=== PATIENT | male | born 1985 ===

== ENCOUNTER 2017-05-08 21:07 | Emergency (ER) | payer SELFPAY ==
[2017-05-08] MEDS ORDERED: cefTRIAXone 1 GM in Premix Bag 1 BAG IV ONE (21:39)
[2017-05-08] MEDS ORDERED: Sodium Chloride 0.9% 10 ML Syringe FLUSH PRN (21:39)
[2017-05-08] MEDS ORDERED: Ketorolac 30 MG/ML SDV IVPUSH ONE (21:39)
[2017-05-08] MEDS ORDERED: Sodium Chloride 0.9% 2.5 ML Syringe FLUSH PRN (21:39)
[2017-05-08] MEDS ORDERED: Sodium Chloride 0.9% 1,000 ML IV ONE (21:39)
--- NOTE | 2017-05-08 21:42 | EDM.PDOC ---
ED HPI GENERAL MEDICAL PROBLEM - General Chief Complaint: ENT Problem Stated Complaint: SORE THROAT AND BODY ACHES Time Seen by Provider: 05/08/17 21:34 - History of Present Illness INITIAL COMMENTS - FREE TEXT/NARRATIVE: HISTORY AND PHYSICAL: History of present illness: The patient is a 31-year-old male with no stated pre-existing medical problems who presents with 2 day history of generalized body aches, fever subjectively chills and a sore throat. He has not had abdominal pain vomiting or diarrhea as been trying to hydrate but does not feel like he is keeping up. He has no chest pain or shortness of breath and has been making some urine but less than usual. Patient is been using [id number] Aleve for pain and fevers. He says he is able to talk and swallow but there is discomfort and his significant other says she looked at his throat looked very red. He also complains of frontal headache but no neck pain. Review of systems: As per history of present illness and below otherwise all systems reviewed and negative. Past medical history: As per history of present illness and as reviewed below otherwise noncontributory. Surgical history: As per history of present illness and as reviewed below otherwise noncontributory. Social history: No reported history of drug or alcohol abuse. Family history: As per history of present illness and as reviewed below otherwise noncontributory. Physical exam: Gen.: Well-developed well-nourished thin man who is nontoxic and speaking softly but without muffled voice or breathlessness. Vital signs have been reviewed by me. HEENT: Atraumatic, normocephalic, pupils reactive, negative for conjunctival pallor or scleral icterus, mucous membranes moist, throat with enlarged reddened tonsils bilaterally and the left tonsil appears to have some exudates on it but uvula is midline, there is anterior cervical adenopathy without posterior adenopathy and there is no nuchal rigidity. There is no discrete sinus tenderness, neck supple, nontender, trachea midline. Lungs: Clear to auscultation, breath sounds equal bilaterally, chest nontender. Heart: S1S2, regular rhythm and tachycardic rate of my evaluation Abdomen: Soft, nondistended, nontender. Negative for masses or hepatosplenomegaly. NABS Pelvis: Stable nontender. Genitourinary: Deferred. Rectal: Deferred. Extremities: Atraumatic, negative for cords or calf pain. Neurovascular unremarkable. Neuro: Awake, alert, oriented. Cranial nerves II through XII unremarkable. Cerebellum unremarkable. Motor and sensory unremarkable throughout. Exam nonfocal. Diagnostics: CBC mono spot Therapeutics: IV fluids Toradol Rocephin Impression: Exudative tonsillitis with mild dehydration Definitive disposition and diagnosis as appropriate pending reevaluation and review of above. throat Pain Score (Numeric/FACES): 10 body Pain Score (Numeric/FACES): 10 - Related Data Allergies Allergy/AdvReac Type Severity Reaction Status Date / Time No Known Allergies Allergy Verified 05/08/17 21:10 Home Meds: Home Meds . [No Known Home Meds] 05/08/17 [History] Past Medical History - Past Health History Medical/Surgical History: Denies Medical/Surgical History - Past Surgical History GI Surgical History: Reports: Hernia, Inguinal Social & Family History - Family History Family Medical History: Noncontributory - Tobacco Use Smoking Status *Q: Current Every Day Smoker Years of Tobacco use: 15 Packs/Tins Daily: 1 - Recreational Drug Use Recreational Drug Use: No ED ROS GENERAL - Review of Systems Review Of Systems: ROS reveals no pertinent complaints other than HPI. ED EXAM, GENERAL - Physical Exam Exam: See Below (See dictation) Course - Vital Signs Last Recorded V/S: Last Vital Signs Temp 37.1 C 05/08/17 21:07 Pulse 122 H 05/08/17 21:07 Resp 20 05/08/17 21:07 BP 107/66 05/08/17 21:07 Pulse Ox 100 05/08/17 21:07 - Orders/Labs/Meds Orders: Active Orders 24 hr Category Date Time Status Sodium Chloride 0.9% [Saline Flush] Med 05/08/17 21:39 Active 10 ml FLUSH ASDIRECTED PRN Sodium Chloride 0.9% [Saline Flush] Med 05/08/17 21:39 Active 2.5 ml FLUSH ASDIRECTED PRN Saline Lock Insert [OM.PC] Stat Oth 05/08/17 21:39 Ordered Medication Orders Sodium Chloride (Saline Flush) 10 ml FLUSH ASDIRECTED PRN PRN Reason: Keep Vein Open Sodium Chloride (Saline Flush) 2.5 ml FLUSH ASDIRECTED PRN PRN Reason: Keep Vein Open Labs: Laboratory Tests 05/08/17 05/08/17 Range/Units 21:55 21:55 WBC 17.03 H (4.0-11.0) K/uL RBC 5.48 (4.50-5.90) M/uL Hgb 16.9 (13.0-17.0) g/dL Hct 47.9 (38.0-50.0) % MCV 87.4 (80.0-98.0) fL MCH 30.8 (27.0-32.0) pg MCHC 35.3 (31.0-37.0) g/dL RDW Std Deviation 41.2 (28.0-62.0) fl RDW Coeff of Gloria 13 (11.0-15.0) % Plt Count 190 (150-400) K/uL MPV 10.00 (7.40-12.00) fL Neut % (Auto) 81.6 H (48.0-80.0) % Lymph % (Auto) 5.6 L (16.0-40.0) % White % (Auto) 12.6 (0.0-15.0) % Eos % (Auto) 0.0 (0.0-7.0) % Baso % (Auto) 0.2 (0.0-1.5) % Neut # (Auto) 13.9 H (1.4-5.7) K/uL Lymph # (Auto) 1.0 (0.6-2.4) K/uL White # (Auto) 2.2 H (0.0-0.8) K/uL Eos # (Auto) 0.0 (0.0-0.7) K/uL Baso # (Auto) 0.0 (0.0-0.1) K/uL Nucleated RBC % 0.0 /100WBC Nucleated RBCs # 0 K/uL Monoscreen NEGATIVE (NEG) Meds: Medications Generic Name Dose Route Start Last Admin Trade Name Freq PRN Reason Stop Dose Admin Sodium Chloride 10 ml 05/08/17 21:39 Saline Flush FLUSH ASDIRECTED PRN Keep Vein Open Sodium Chloride 2.5 ml 05/08/17 21:39 Saline Flush FLUSH ASDIRECTED PRN Keep Vein Open Discontinued Medications Generic Name Dose Route Start Last Admin Trade Name Freq PRN Reason Stop Dose Admin Ceftriaxone Sodium/Dextrose 1 50 mls @ 100 mls/hr 05/08/17 21:39 05/08/17 21: 56 gm/ Premix IV 05/08/17 22:08 100 mls/hr ONETIME ONE Administration Sodium Chloride 1,000 mls @ 999 mls/hr 05/08/17 21:39 05/08/17 21:56 Normal Saline IV 05/08/17 22:39 999 mls/hr STAT ONE Administration Ketorolac Tromethamine 30 mg 05/08/17 21:39 05/08/17 21:55 Toradol IVPUSH 05/08/17 21:40 30 mg ONETIME ONE Administration Departure - Departure Time of Disposition: 22:48 Disposition: Home, Self-Care 01 Condition: Good Clinical Impression: Exudative tonsillitis, Dehydration, mild - Discharge Information Referrals: PCP,None [Primary Care Provider] - Forms: ED Department Discharge Additional Instructions: The following information is given to patients seen in the emergency department who are being discharged to home. This information is to outline your options for follow-up care. We provide all patients seen in our emergency department with a follow-up referral. The need for follow-up, as well as the timing and circumstances, are variable depending upon the specifics of your emergency department visit. If you don't have a primary care physician on staff, we will provide you with a referral. We always advise you to contact your personal physician following an emergency department visit to inform them of the circumstance of the visit and for follow-up with them and/or the need for any referrals to a consulting specialist. The emergency department will also refer you to a specialist when appropriate. This referral assures that you have the opportunity for followup care with a specialist. All of these measure are taken in an effort to provide you with optimal care, which includes your followup. Under all circumstances we always encourage you to contact your private physician who remains a resource for coordinating your care. When calling for followup care, please make the office aware that this follow-up is from your recent emergency room visit. If for any reason you are refused follow-up, please contact the [facility] emergency department at and ask to speak to the emergency department charge nurse. [facility] Primary care- Internal Medicine and [facility] [address] [place] [address] Please contact the clinic for an appointment for follow-up for reevaluation further care and return to ER as needed and as discussed. Push hydration use [id number] Tylenol or ibuprofen for fever and pain and take antibiotics until they're finished. Rest as much as possible You have been given a prescription via [facility] for antibiotics, clindamycin, that you should take as prescribed - My Orders Last 24 Hours: My Active Orders 05/08/17 21:39 Sodium Chloride 0.9% [Saline Flush] 10 ml FLUSH ASDIRECTED PRN Sodium Chloride 0.9% [Saline Flush] 2.5 ml FLUSH ASDIRECTED PRN Saline Lock Insert [OM.PC] Stat - Assessment/Plan Last 24 Hours: My Active Orders 05/08/17 21:39 Sodium Chloride 0.9% [Saline Flush] 10 ml FLUSH ASDIRECTED PRN Sodium Chloride 0.9% [Saline Flush] 2.5 ml FLUSH ASDIRECTED PRN Saline Lock Insert [OM.PC] Stat
== END 2017-05-08 23:23 | disposition home or self-care (01) ==
LOC: MW.ED 21:07
DX: J03.90 Acute tonsillitis, unspecified (principal); E86.0 Dehydration; F17.210 Nicotine dependence, cigarettes, uncomplicated
CPT/HCPCS: 36415; 85025; 86308; 96361; 96365; 96375; 99283; J0696; J1885; J7040

== ENCOUNTER 2017-08-07 23:27 | Emergency (ER) | payer SELFPAY ==
[2017-08-07] MEDS ORDERED: Sodium Chloride 0.9% 2.5 ML Syringe FLUSH PRN ×2 (23:30)
[2017-08-07] MEDS ORDERED: Aspirin 81 MG Tab.Chew PO ONE (23:30)
[2017-08-07] MEDS ORDERED: Sodium Chloride 0.9% 1,000 ML IV ONE (23:30)
[2017-08-07] MEDS ORDERED: Sodium Chloride 0.9% 10 ML Syringe FLUSH PRN (23:30)
--- NOTE | 2017-08-07 23:30 | EDM.PDOC ---
ED HPI GENERAL MEDICAL PROBLEM - General Stated Complaint: OVERDOSE Time Seen by Provider: 08/07/17 23:30 Source of Information: Reports: Patient, EMS History Limitations: Reports: No Limitations - History of Present Illness INITIAL COMMENTS - FREE TEXT/NARRATIVE: HISTORY AND PHYSICAL: History of present illness: [31-year-old male presenting to emergency department via EMS for suspected overdose. As per EMS, the patient had been found unresponsive and bystanders had given him CPR. When EMS arrived he did have a strong pulse. They did give him 4 mg of Narcan which Patient responded to. In route they did note mild ST elevation. On examination the patient is alert and oriented 3. He does have some shortness of breath but does not complain of anything else. He denies any trauma. States that he was drinking alcohol but denies any other drug use. Patient states that he is from [place]. Initial exam is benign other than mild pinpointing of pupils. As above GCS 15 EKG: NSR with early repolarization. 1215: CXR and Head CT unremarkable. CBC unremarkable 1240: Patient A&Ox 3. Talked with patient without police present and he admits to taking heroin IV. He states that he has only done it a few times so does not have a tolerance. Unsure how much he took because he had been drinking alcohol. He has never overdosed before. 1310: Troponin negative, amylase, lipase unremarkable. CMP unremarkable other than mild elevation of AST of 48. Ethanol: 3.0. ] Review of systems: As per history of present illness and below otherwise all systems reviewed and negative. Past medical history: As per history of present illness and as reviewed below otherwise noncontributory. Surgical history: As per history of present illness and as reviewed below otherwise noncontributory. Social history: No reported history of drug or alcohol abuse. Family history: As per history of present illness and as reviewed below otherwise noncontributory. Physical exam: HEENT: Atraumatic, normocephalic, pupils reactive, pinpoint, negative for conjunctival pallor or scleral icterus, mucous membranes moist, throat clear, neck supple, nontender, trachea midline. Lungs: Clear to auscultation, breath sounds equal bilaterally, chest nontender. Heart: S1S2, regular, negative for clicks, rubs, or JVD. Abdomen: Soft, nondistended, nontender. Negative for masses or hepatosplenomegaly. Negative for costovertebral tenderness. Pelvis: Stable nontender. Genitourinary: Deferred. Rectal: Deferred. Extremities: Atraumatic, negative for cords or calf pain. Neurovascular unremarkable. Neuro: Awake, alert, oriented. Cranial nerves II through XII unremarkable. Cerebellum unremarkable. Motor and sensory unremarkable throughout. Exam nonfocal. Diagnostics: [CBC, CMP, troponin, amylase, lipase, EKG, chest x-ray, CT head, UA, urine tox] Therapeutics: [] Impression: [Acute overdose, heroin] Plan: [Patient was observed for 2 hours and remained alert and oriented 3. His ethanol, CBC, CMP, troponin, amylase, lipase, EKG, chest x-ray, head CT were all unremarkable. I did talk with the patient and he was requesting to be discharged if all his labs looked fine. Patient had no other complaints other than some mild rib pain from suspected chest compressions that were done prior to EMS arriving. Patient was discharged in good condition with instructions to follow-up with his PCP as well as return to emergency department if he had any new or worsening symptoms.] - Related Data Allergies Allergy/AdvReac Type Severity Reaction Status Date / Time No Known Allergies Allergy Verified 08/07/17 23:49 Home Meds: Home Meds . [No Known Home Meds] 05/08/17 [History] Past Medical History - Past Health History Medical/Surgical History: Denies Medical/Surgical History - Past Surgical History GI Surgical History: Reports: Hernia, Inguinal Social & Family History - Family History Family Medical History: Noncontributory - Tobacco Use Smoking Status *Q: Current Every Day Smoker Years of Tobacco use: 15 Packs/Tins Daily: 1 - Recreational Drug Use Recreational Drug Use: No ED ROS GENERAL - Review of Systems Review Of Systems: See Below ED EXAM, GENERAL - Physical Exam Exam: See Below Course - Vital Signs Last Recorded V/S: Last Vital Signs Temp 97.5 F 08/07/17 23:28 Pulse 91 08/07/17 23:28 Resp 21 H 08/07/17 23:28 BP 132/70 08/07/17 23:28 Pulse Ox 84 L 08/07/17 23:28 - Orders/Labs/Meds Orders: Active Orders 24 hr Category Date Time Status Cardiac Monitoring [RC] . DIRECTED Care 08/07/17 23:30 Active EKG Documentation Completion [RC] STAT Care 08/07/17 23:30 Active Oxygen Therapy [RC] ASDIRECTED Care 08/07/17 23:30 Active Chest 1V Frontal [CR] Stat Exams 08/07/17 23:30 Taken Head wo Cont [CT] Stat Exams 08/07/17 23:38 Taken DRUG SCREEN, URINE [URCHEM] Stat Lab 08/07/17 23:30 Ordered UA W/MICROSCOPIC [URIN] Stat Lab 08/07/17 23:31 Ordered Sodium Chloride 0.9% [Saline Flush] Med 08/07/17 23:30 Active 10 ml FLUSH ASDIRECTED PRN Sodium Chloride 0.9% [Saline Flush] Med 08/07/17 23:30 Active 2.5 ml FLUSH ASDIRECTED PRN Sodium Chloride 0.9% [Saline Flush] Med 08/07/17 23:30 Active 2.5 ml FLUSH ASDIRECTED PRN Saline Lock Insert [OM.PC] Stat Oth 08/07/17 23:30 Ordered Medication Orders Sodium Chloride (Saline Flush) 2.5 ml FLUSH ASDIRECTED PRN PRN Reason: Keep Vein Open Sodium Chloride (Saline Flush) 10 ml FLUSH ASDIRECTED PRN PRN Reason: Keep Vein Open Sodium Chloride (Saline Flush) 2.5 ml FLUSH ASDIRECTED PRN PRN Reason: Keep Vein Open Labs: Laboratory Tests 08/07/17 08/07/17 08/07/17 Range/Units 23:36 23:36 23:36 WBC 6.70 (4.0-11.0) K/uL RBC 4.71 (4.50-5.90) M/uL Hgb 14.2 (13.0-17.0) g/dL Hct 42.7 (38.0-50.0) % MCV 90.7 (80.0-98.0) fL MCH 30.1 (27.0-32.0) pg MCHC 33.3 (31.0-37.0) g/dL RDW Std Deviation 48.6 (28.0-62.0) fl RDW Coeff of Gloria 15 (11.0-15.0) % Plt Count 245 (150-400) K/uL MPV 9.70 (7.40-12.00) fL Neut % (Auto) 38.3 L (48.0-80.0) % Lymph % (Auto) 43.4 H (16.0-40.0) % Garvin % (Auto) 12.2 (0.0-15.0) % Eos % (Auto) 5.7 (0.0-7.0) % Baso % (Auto) 0.4 (0.0-1.5) % Neut # (Auto) 2.6 (1.4-5.7) K/uL Lymph # (Auto) 2.9 H (0.6-2.4) K/uL Garvin # (Auto) 0.8 (0.0-0.8) K/uL Eos # (Auto) 0.4 (0.0-0.7) K/uL Baso # (Auto) 0.0 (0.0-0.1) K/uL Nucleated RBC % 0.0 /100WBC Nucleated RBCs # 0 K/uL Sodium 139 (136-148) mmol/L Potassium 3.8 (3.5-5.1) mmol/L Chloride 105 (98-107) mmol/L Carbon Dioxide 25.8 (21.0-32.0) mmol/L BUN 16 (7.0-18.0) mg/dL Creatinine 1.0 (0.8-1.3) mg/dL Est Cr Clr Drug Dosing 110.51 mL/min Estimated GFR (MDRD) > 60.0 ml/min Glucose 113 H (74-106) mg/dL Calcium 8.7 (8.5-10.1) mg/dL Total Bilirubin 0.2 (0.2-1.0) mg/dL AST 48 H (15-37) IU/L ALT 46 (14-63) IU/L Alkaline Phosphatase 111 (46-116) U/L Troponin I < 0.050 (0.000-0.056) ng/mL Total Protein 6.8 (6.4-8.2) g/dL Albumin 3.6 (3.4-5.0) g/dL Globulin 3.2 (2.0-3.5) g/dL Albumin/Globulin Ratio 1.1 L (1.3-2.8) Amylase 49 (25-115) U/L Lipase 156 (73-393) U/L Ethyl Alcohol < 3.0 mg/dL Meds: Medications Generic Name Dose Route Start Last Admin Trade Name Freq PRN Reason Stop Dose Admin Sodium Chloride 2.5 ml 08/07/17 23:30 Saline Flush FLUSH ASDIRECTED PRN Keep Vein Open Sodium Chloride 10 ml 08/07/17 23:30 Saline Flush FLUSH ASDIRECTED PRN Keep Vein Open Sodium Chloride 2.5 ml 08/07/17 23:30 Saline Flush FLUSH ASDIRECTED PRN Keep Vein Open Discontinued Medications Generic Name Dose Route Start Last Admin Trade Name Freq PRN Reason Stop Dose Admin Aspirin 324 mg 08/07/17 23:33 08/07/17 23:34 Aspirin CHEW 08/07/17 23:34 324 mg ONETIME ONE Administration Aspirin 324 mg 08/07/17 23:30 08/07/17 23:35 Aspirin PO 08/07/17 23:31 Not Given ONETIME ONE Aspirin Confirm 08/07/17 23:32 08/07/17 23:39 Aspirin Administered 08/07/17 23:33 Not Given Dose 324 mg .ROUTE .STK-MED ONE Sodium Chloride 1,000 mls @ 999 mls/hr 08/07/17 23:30 08/07/17 23:35 Normal Saline IV 08/08/17 00:30 999 mls/hr .Bolus ONE Administration Departure - Departure Time of Disposition: 01:19 Disposition: Home, Self-Care 01 Condition: Good Clinical Impression: Accidental drug overdose, Heroin overdose - Discharge Information Referrals: PCP,None [Primary Care Provider] - Additional Instructions: My general discharge The following information is given to patients seen in the emergency department who are being discharged to home. This information is to outline your options for follow-up care. We provide all patients seen in our emergency department with a follow-up referral. The need for follow-up, as well as the timing and circumstances, are variable depending upon the specifics of your emergency department visit. If you don't have a primary care physician on staff, we will provide you with a referral. We always advise you to contact your personal physician following an emergency department visit to inform them of the circumstance of the visit and for follow-up with them and/or the need for any referrals to a consulting specialist. The emergency department will also refer you to a specialist when appropriate. This referral assures that you have the opportunity for follow-up care with a specialist. All of these measure are taken in an effort to provide you with optimal care, which includes your follow-up. Under all circumstances we always encourage you to contact your private physician who remains a resource for coordinating your care. When calling for follow-up care, please make the office aware that this follow-up is from your recent emergency room visit. If for any reason you are refused follow-up, please contact the [facility] Emergency Department at and asked to speak to the emergency department charge nurse. [facility] [address] [place] [id number] - My Orders Last 24 Hours: My Active Orders 08/07/17 23:30 Cardiac Monitoring [RC] . DIRECTED EKG Documentation Completion [RC] STAT Oxygen Therapy [RC] ASDIRECTED Chest 1V Frontal [CR] Stat DRUG SCREEN, URINE [URCHEM] Stat Sodium Chloride 0.9% [Saline Flush] 10 ml FLUSH ASDIRECTED PRN Sodium Chloride 0.9% [Saline Flush] 2.5 ml FLUSH ASDIRECTED PRN Sodium Chloride 0.9% [Saline Flush] 2.5 ml FLUSH ASDIRECTED PRN Saline Lock Insert [OM.PC] Stat 08/07/17 23:31 UA W/MICROSCOPIC [URIN] Stat 08/07/17 23:38 Head wo Cont [CT] Stat - Assessment/Plan Last 24 Hours: My Active Orders 08/07/17 23:30 Cardiac Monitoring [RC] . DIRECTED EKG Documentation Completion [RC] STAT Oxygen Therapy [RC] ASDIRECTED Chest 1V Frontal [CR] Stat DRUG SCREEN, URINE [URCHEM] Stat Sodium Chloride 0.9% [Saline Flush] 10 ml FLUSH ASDIRECTED PRN Sodium Chloride 0.9% [Saline Flush] 2.5 ml FLUSH ASDIRECTED PRN Sodium Chloride 0.9% [Saline Flush] 2.5 ml FLUSH ASDIRECTED PRN Saline Lock Insert [OM.PC] Stat 08/07/17 23:31 UA W/MICROSCOPIC [URIN] Stat 08/07/17 23:38 Head wo Cont [CT] Stat
[2017-08-07] MEDS ORDERED: Aspirin 81 MG Tab.Chew ONE (23:32)
[2017-08-07] MEDS ORDERED: Aspirin 81 MG Tab.Chew CHEW ONE (23:33)
[2017-08-08 00:16] LABS: CHLORIDE,CL 105 mmol/L (98-107); SODIUM,NA 139 mmol/L (136-148)
[2017-08-08] MEDS ORDERED: Bacitracin Oint 1 GM U/D Packet TOP ONE (00:19)
--- NOTE | 2017-08-08 10:51 | CR ---
EXAM DATE: 08/07/17 PATIENT'S AGE: 31 Patient: QUINTIN CRAFT Facility: [place], [place] Site . Site : 1985 Study: XRay Chest [id number] 11:43:55 PM Ordering Physician: Doctor Lang Final Report: Indication: Found unresponsive, CPR performed, now complains of shortness of breath Technique: Chest 1 view Comparison: None Findings: Cardiovascular and mediastinum: Heart size and vasculature are normal in caliber and appearance. Mediastinum is within normal limits. Lungs and pleural space: Lungs are clear. No sign of infiltrate or mass. No sign of pleural effusion. No pneumothorax. Bones and soft tissues: No significant findings. Impression: : No acute abnormality. Dictated by Jordana Ochoa MD @ Aug 07 2017 11:58PM (Electronic Signature) Report Signed by Proxy. EMILY
--- NOTE | 2017-08-08 10:59 | CT ---
EXAM DATE: 08/07/17 PATIENT'S AGE: 31 Patient: QUINTIN CRAFT Facility: [place], [place] Site . Site : 1985 Study: CT Head [id number]/14/2018 11:58:23 PM Ordering Physician: Doctor Lang Final Report: CT HEAD DATE: 08/07/2017 CLINICAL HISTORY: Patient with altered mental status and possible drug overdose. TECHNIQUE: Standard CT scanning of the head was performed. COMPARISON: None. FINDINGS: There is no intracranial hemorrhage. The garcia matter-white matter differentiation is intact. The size of the ventricular system is normal for age. There is no mass effect or midline shift. The calvarium is unremarkable. The orbits are unremarkable. The paranasal sinuses are unremarkable. The mastoid air cells are unremarkable. The soft tissues are unremarkable. IMPRESSION: Normal head CT. Dictated by: Klaudia Moore MD @ 08/08/2017 00:05:10 (Electronic Signature) Report Signed by Proxy. [facility]ENTERMillicent
== END 2017-08-08 01:40 | disposition home or self-care (01) ==
LOC: MW.ED 23:27
DX: T40.1X1A Poisoning by heroin, accidental (unintentional), initial encounter (principal); R06.02 Shortness of breath; F17.210 Nicotine dependence, cigarettes, uncomplicated
CPT/HCPCS: 36415; 70450; 71045; 80053; 82150; 83690; 84484; 85025; 96360; 96361; 99285; A9270; G0480; J7040; 99284